=== PATIENT | female | born 1970 | race Two or more races ===

== ENCOUNTER 2017-01-23 13:05 | Emergency (ER) | payer OTHER ==
[2017-01-23 13:32] VITALS: BP 128/82; PULSE 117; TEMP 98.9; BMI 30.1
--- NOTE | 2017-01-23 14:52 | PDOC ---
History of Present Illness - General Chief Complaint: Pain, Acute Stated Complaint: LT LEG/HIP PAIN Time Seen by Provider: 01/23/17 14:47 History Source: Patient Exam Limitations: No Limitations - History of Present Illness Initial Comments: CHIEF COMPLAINT: 46 y/o afebrile female with no significant PMH c/o left low back and buttock pain for the past 4 days. HISTORY OF PRESENT ILLNESS: The patient describes the pain as burning and admits it radiates down her left leg. She states this happened once before but not this bad. She does not recall anything that brought on the pain. She denies fall, trauma to back, heavy lifting, saddle anesthesia, numbness/ tingling in LEs, bowel/bladder incontinence. She has been taking ibuprofen and percocet with little relief. Vital signs on arrival are notable for pulse of 117. REVIEW OF SYSTEMS: GENERAL/CONSTITUTIONAL: No fever/chills. No weakness. No weight change. GENITOURINARY: No dysuria, frequency, or change in urination. MUSCULOSKELETAL: +left low back pain radiating down left leg. No neck pain. SKIN: No rash or easy bruising. NEUROLOGIC: No headache, vertigo, loss of consciousness, or loss of sensation. PHYSICAL EXAM: VITAL_SIGNS: within normal limits GENERAL_APPEARANCE: alert, cooperative, mild obvious discomfort. MENTAL_STATUS: speech clear, oriented X 3, responds appropriately to questions. NEURO: motor intact and sensory intact in injured extremity. No saddle anesthesia. BACK: TTP of left lumbar paravertebral muscles. No midline lumbar spine TTP or step offs. EXTREMITIES: Pain reproduced with palpation of left gluteal muscle. Full ROM of all extremities. SKIN: warm, dry, good color. Past History - Past Medical History Allergies/Adverse Reactions: Allergies Allergy/AdvReac Type Severity Reaction Status Date / Time No Known Allergies Allergy Verified 01/23/17 13:32 Home Medications: Ambulatory Orders Amoxicillin - [Amoxicillin 500mg Capsule -] 500 mg PO TID #21 capsule 05/04/16 Chlorthalidone 25 mg PO DAILY 05/04/16 Oxycodone HCl/Acetaminophen [Percocet 5-325 mg Tablet] 2 tab PO Q4H 05/04/16 Methocarbamol [Robaxin -] 1,000 mg PO TID #18 tablet 01/23/17 HTN: Yes - Surgical History Abdominal Surgery: Yes (umbilical hernia) Neurologic Surgery: Yes (neck lower back) - Psycho/Social/Smoking Cessation Hx Anxiety: No Suicidal Ideation: No Smoking History: Never smoked Have you smoked in the past 12 months: No Hx Alcohol Use: No Drug/Substance Use Hx: No Substance Use Type: None *Physical Exam - Vital Signs Last Vital Signs Temp Pulse Resp BP Pulse Ox 98.9 F 117 H 20 128/82 98 01/23/17 13:29 01/23/17 13:29 01/23/17 13:29 01/23/17 13:29 01/23/17 13:29 Medical Decision Making - Medical Decision Making A/P: 46 y/o female with left sided sciatica. Suggested she continue taking percocet and ibuprofen at home. Will send rx for robaxin and informed her it could make her drowsy. Demonstrated stretches for her to perform multiple times per day and suggested heat and massage to the area as well. Suggested she follow up with her doctor in 1 week and return to the ER with any worsening or concerning symptoms. The patient verbalizes understanding of all instructions, has no further questions and is awaiting discharge. *DC/Admit/Observation/Transfer Diagnosis at time of Disposition: Sciatica of left side - Discharge Dispostion Disposition: HOME Condition at time of disposition: Stable - Prescriptions Prescriptions: Methocarbamol [Robaxin -] 1,000 mg PO TID #18 tablet - Patient Instructions Printed Discharge Instructions: DI for Sciatica Additional Instructions: Discharge Instructions: -Take medications as prescribed. The medication sent to your pharmacy may cause drowsiness -Continue taking Ibuprofen and Percocet at home as prescribed -Stretch and massage your left low back and leg as shown in the ER multiple times per day -Follow up with your doctor in 1 week -Return to the ER with any worsening or concerning symptoms
== END 2017-01-23 17:05 | disposition home or self-care (01) ==
LOC: JERFT 13:05
DX: M54.42 Lumbago with sciatica, left side (principal)
CPT/HCPCS: 84703; 99281-25

== ENCOUNTER 2021-10-17 12:25 | Emergency (ER) | payer OTHER ==
[2021-10-17 12:58] VITALS: BP 141/85; PULSE 108; TEMP 98.1; BMI 30.6
[2021-10-17] MEDS ORDERED: METOCLOPRAMIDE HCL INJECTION 10 MG/2 ML VIAL IVPB ONE (13:43)
[2021-10-17] MEDS ORDERED: KETOROLAC TROMETHAMINE 30 MG/1 ML VIAL IVPUSH ONE (13:43)
[2021-10-17] MEDS ORDERED: METOCLOPRAMIDE HCL INJECTION 10 MG/2 ML VIAL ONE (13:44)
[2021-10-17] MEDS ORDERED: KETOROLAC TROMETHAMINE 30 MG/1 ML VIAL ONE (14:14)
== END 2021-10-17 14:48 | disposition home or self-care (01) ==
LOC: JERFT 12:25
PROC: 3E0233Z Introduction of Anti-inflammatory into Muscle, Percutaneous Approach (ICD-10-PCS; principal; 2021-10-17)
PROC: 3E033GC Introduction of Other Therapeutic Substance into Peripheral Vein, Percutaneous Approach (ICD-10-PCS; 2021-10-17)
DX: R51.9 Headache, unspecified (principal)
CPT/HCPCS: 96374; 96375; 99284-25

== ENCOUNTER → 2022-10-16 | Day surgery (SDC) | payer OTHER ==
[2022-10-11 15:55] VITALS: BMI 28.1
[2022-10-16 12:35] VITALS: RESP 14; TEMP 97.6
[2022-10-16 12:43] VITALS: BP 106/68; PULSE 88
== END | disposition home or self-care (01) ==
LOC: FASU-ENDO 10:57
PROVIDERS: ATTEND Internal Medicine Gastroenterology
PROC: 0DB78ZX Excision of Stomach, Pylorus, Via Natural or Artificial Opening Endoscopic, Diagnostic (ICD-10-PCS; 2022-10-16)
PROC: 0DB48ZX Excision of Esophagogastric Junction, Via Natural or Artificial Opening Endoscopic, Diagnostic (ICD-10-PCS; 2022-10-16)
PROC: 0DB98ZX Excision of Duodenum, Via Natural or Artificial Opening Endoscopic, Diagnostic (ICD-10-PCS; principal; 2022-10-16 12:10)
DX: K29.70 Gastritis, unspecified, without bleeding (principal); K21.00 Gastro-esophageal reflux disease with esophagitis, without bleeding; K29.80 Duodenitis without bleeding; K22.89 Other specified disease of esophagus
CPT/HCPCS: 88305-TC; 88342-TC

== ENCOUNTER 2023-03-27 12:59 | Emergency (ER) | payer OTHER ==
[2023-03-27 13:02] VITALS: BP 154/78; PULSE 97; RESP 18; TEMP 99; BMI 28.8
[2023-03-27 13:43] LABS: HCG,QUALITATIVE URINE Negative
[2023-03-27 13:52] LABS: EPI CELLS >36 /uL (0-25.1); HYALINE CASTS 1 /uL (0-3.1); PH,URINE 5.5 (5.0-8.0); URINE APPEARANCE CLEAR; URINE BACTERIA 448 /uL (0-1359); URINE BILIRUBIN NEGATIVE (NEGATIVE); URINE COLOR DK YELLOW; URINE GLUCOSE (UA) NEGATIVE (NEGATIVE); URINE KETONE TRACE (NEGATIVE); URINE LEUK ESTERASE TRACE (NEGATIVE); URINE NITRITE NEGATIVE (NEGATIVE); URINE PROTEIN NEGATIVE (NEGATIVE); URINE RBC 9 /uL (0-23.9); URINE WBC 19 /uL (0-25.8)
[2023-03-27] MEDS ORDERED: METHOCARBAMOL 500 MG TABLET PO ONE (14:33)
[2023-03-27] MEDS ORDERED: METHOCARBAMOL 500 MG TABLET ONE (14:37)
== END 2023-03-27 14:39 | disposition home or self-care (01) ==
LOC: JERFT 12:59
DX: R20.2 Paresthesia of skin (principal); M54.50 Low back pain, unspecified; V49.40XA Driver injured in collision with unspecified motor vehicles in traffic accident, initial encounter
CPT/HCPCS: 72100-TC-FY; 81003; 84703; 99283-25